=== PATIENT | male | born 1955 | race Caucasian/White ===

== ENCOUNTER → 2017-01-22 | Day surgery (SDC) | payer OTHER ==
[~2017-01-22] VITALS: Ht 188 cm; Wt 93.0 kg
[~2017-01-22] MED LIST: MAGNESIUM500 M2 PO; TERAZOSIN HCL2 M1 PO
--- NOTE | 2017-01-23 07:10 | Operative Report ---
Operative/Inv Procedure Report Surgery Date: 01/22/17 Name of Procedure: LASER TURP; CYSTOSCOPY Pre-Operative Diagnosis: BPH WITH RETENTION Post-Operative Diagnosis: SAME Estimated Blood Loss: less than 50ml Surgeon/Retail Analytics Manager: TEENA GAMBINO MD Anesthesia: laryngeal mask airway Drains: 20FR HERCULES Specimens: PROSTATE MIDDLE LOBE CHIP Complications: NONE Operative/Procedure Note Note: The patient was taken to the operating room and placed on the OR table in supine position. Timeout was performed, with the patient awake, in order to confirm the patient's correct identity, procedure, laterality, antibiotics, and other pertinent mary-operative information. After adequate anesthesia and antibiotics , the indwelling hercules was removed. The patient was then draped and prepped in the usual surgical fashion. He was positioned comfortably and securely in Yellow-Fin stirrups. A lubricated 22 Somali cystoscope sheath with 30 angle lens was inserted under direct visualization. On entering the prostatic urethra, the prostate gland was noted to have significantly obstructing bilateral prostate lobes, and a large sized middle lobe. The veru-montanum was noted to be normal. Upon entering the bladder, through a narrowed bladder neck, the bladder was noted to be trabeculated with multiple cellules. There was no evidence of bladder tumor, nor stones. Both ureteral orifices were noted to be in their orthotopic position with clear reflux bilaterally. The bladder was drained, via the cystoscope, and the cystoscope was removed. A 26 Somali laser resectoscope sheath was then inserted into the penis, with a 30 angle lens, under direct visualization. Maintaining the cystoscope at the level of the veru-montanum, the diode laser fiber was then inserted through the scope and visualized directly in front of the laser resectoscope sheath, in proper orientation. Photo-vaporization of the middle lobe was performed by wedging techcnique with the diode laser. Once the chip of the obstructing middle lobe was resected, that chip was then extracted from the bladder using an alligator grasper. The resectoscope was then reinserted into the penis at the level of the vera montanum. Photo vaporization Left lobe was performed in order to open a wide prostatic urethral channel on the left side. The resection proceeded from the 2-6 o'clock position, obliterating the glandular tissue, to form an open channel. Laser TURP was performed in a sweeping manner in order to get good vaporization of the prostate lobe, and good hemostasis. The resection of the left apical lobe was haulted at the level of the vera montanum, so as to preserve the external sphincter. Once the left lobe was resected in a satisfactory manner, the right lobe of the prostate was then photo vaporized in the same manner from the 10:00 to the 6 o'clock position. Once again the resection of the right lobe was haulted at the level of the veru-montanum. The middle lobe was then photo vaporized, with the diode laser, in order to further open the prostatic channel adequately. Once hemostasis and an open channel was confirmed, the resectoscope was then reinserted into the bladder. The bladder was again thoroughly and systematically surveyed in order to confirm no evidence of injury to the bladder or orifices. The bladder was copiously irrigated in order to us to ensure no foreign body was in the bladder. The bladder was left full and the resectoscope was then removed under direct visualization again confirming good hemostasis. The patient was noted to have mild spontaneous drainage upon removal of the resectoscope. All sponge, needle, and instrument count were correct at the end of the case. A 20 Somali Hercules catheter was then inserted and drained clear fluid prior to inflating the 10 mL balloon. The Hercules catheter was attached to a drainage bag. The patient tolerated the procedure well and was taken to the recovery room in satisfactory condition, with Rx for antibiotics, and pain-meds. Findings: large middle lobe Discharge Disposition: PACU Additional Comments: f/u in office for voiding trial CC: TEENA GAMBINO MD
== END ==
LOC: STS 01-06 07:00
DX: N40.1 Benign prostatic hyperplasia with lower urinary tract symptoms (principal); R33.8 Other retention of urine; N32.89 Other specified disorders of bladder; E78.2 Mixed hyperlipidemia; I10 Essential (primary) hypertension; I49.3 Ventricular premature depolarization
CPT/HCPCS: J0131; J2250; J2405

== ENCOUNTER 2018-01-05 02:03 | Inpatient (IN) | payer OTHER ==
[~2018-01-05] VITALS: Ht 188 cm; Wt 95.3 kg
[~2018-01-05 02:03] MED LIST changes: +BENADRYL25 MG PO; +FLOMAX0.4 M1 PO
--- NOTE | 2018-01-05 11:00 | PN- Urology ---
Surgical Brief Attending Note Brief Attending Note: PT POST TURP WITH GROSS HEMATURIA-REQUIRES CBI WITH NS AND WILL THEREFORE NEED TO STAY IN HOSPITAL AT LEAST OVERNIGHT.
[2018-01-05 12:15] VITALS: BP 130/80
[2018-01-05 14:54] VITALS: BP 120/66
[2018-01-05 21:52] VITALS: BP 138/80
[2018-01-06] MEDS ORDERED: DOCUSATE SODIU100 M3 PO (07:11)
[2018-01-06] MEDS ORDERED: PERCOCET 5-3251 EACH PO (07:11)
[2018-01-06 07:39] VITALS: BP 136/76
[2018-01-06 07:50] LABS: ABSOLUTE BASOPHIL COUNT 0 /CUMM (0.0-0.2); ABSOLUTE EOSINOPHIL COUNT 0 /CUMM (0.0-0.7); ABSOLUTE LYMPH COUNT 1.3 /CUMM (1.2-3.4); ABSOLUTE MONOCYTE COUNT 0.6 /CUMM (0.10-0.60); BASOPHIL % 0.2 % (0.0-2.0); EOSINOPHIL % 0.4 % (0-5); GRANULOCYTE % 82.5 % (42.2-75.2); HEMATOCRIT 48.1 % (42-52); MEAN CORPUSCULAR HGB 29.4 PG (27.0-31.0); MEAN CORPUSCULAR HGB CONC 33.5 G/DL (33.0-37.0); MEAN CORPUSCULAR VOLUME 87.6 FL (80.0-94.0); MEAN PLATELET VOLUME 6.7 FL (7.4-10.4); PLATELET COUNT 258 /CUMM (130-400); RBC DISTRIBUTION WIDTH 13.9 % (11.5-14.5); WHITE BLOOD CELL COUNT 10.9 /CUMM (4.8-10.8)
--- NOTE | 2018-01-06 08:26 | Operative Report ---
Operative/Inv Procedure Report Surgery Date: 01/05/18 Name of Procedure: turp: standard bipolar Pre-Operative Diagnosis: bph-retention Post-Operative Diagnosis: same Estimated Blood Loss: less than 50ml Surgeon/Tight Barrel Inspector: Ryan Glynn MD Anesthesia: laryngeal mask airway Drains: 22fr 3-way on ns cbi Specimens: prostate chips Complications: none Operative/Procedure Note Note: The patient was taken to the operating room and placed on the OR table in supine position. Timeout was performed, with the pt. awake, to correctly identify the patient, anesthesia, procedure, and IV antibiotics, and other pertinent perioperative information. After adequate anesthesia and antibiotics, the patient was then placed in lithotomy stirrups using yellowfin stirrups. The patient was then draped and prepped in the usual surgical fashion. A 26 Croatian standard resectoscope sheath with a 30 angle lens and the 24 Croatian loop was inserted into the urethra, and then advanced into the bladder without difficulty. A FEW small clots, and bladder stones, were noted in the bladder, and were Ellix evacuated out. With a clearer vision, the prostate was noted to have an irregular and ratty surface with severely coapting lobes. Additionally, the prostate was hypervascular consistent with regrowth. Upon entering the bladder, it was thoroughly and systematically surveyed revealing no evidence of tumor, both orifices were difficult to find due to the severe trabeculation, in their orthotopic position with clear yellow reflux. The resectoscope was then retracted to the level of the jackson montanum. Under direct visualization the 24 Croatian loop was then extended beyond the scope. Under direct visualization, and using the cutting current, the left lobe of the prostate was resected from the 2 :00 to the 6 o'clock position to the level of the fibromuscular capsule. Using coag current, spot cauterization was performed in order to achieve good hemostasis of the prostate. The loop was then extended once again using cutting current to resect the right side of the prostate from the 10:00 to the 6 o'clock position to the level of the fibromuscular capsule. Spot cauterization using coag current was then performed in order to achieve good hemostasis. Maintaining the position of the resectoscope at the level of the vera montanum the apical tissue was resected as well on both sides. The external sphincter was preserved. The bladder was then re-entered via the resectoscope, and the prostate chips were irrigated out using tumey evacuation. Once all the prostate chips were removed, the bladder was re-evaluating and noted to have no untoward injury. Additionally, the prostate channel was noted to have good hemostasis, with a wide open channel. The resectoscope was removed with the bladder full. A 22 Croatian couvalier three-way Hercules catheter was inserted without difficulty draining clear fluid. The bladder was again copiously irrigated via the hercules to ensure patency/ The 30 mL balloon was then filled, and continuous bladder irrigation with normal saline was initiated. Clear and easy drainage of NS from the main port was confirmed with CBI. All sponge needle and instrument count were correct at the end of the case. The patient tolerated the procedure well and was then taken to the recovery room in satisfactory condition. Discharge Disposition: PACU CC: Ryan Glynn MD
[2018-01-06 14:19] VITALS: BP 140/70
[2018-01-06 21:56] VITALS: BP 132/64
== END 2018-01-07 12:30 | DRG 667 ==
LOC: STS 02:03 → PACUH 09:53 → ENRESERV 10:00 → ENTRNSPT 11:35 → EDTRNSPTSTS 11:44 → EDTRNSPT 11:44 → 2NB 12:01 → CMPTRNSPT 12:15 → ENPENDDIS 01-06 07:16 → 2NB 01-06 09:49 → EDPENDDISDT 01-07 07:16 → 2NB 01-07 12:30
PROVIDERS: Urology
PROC: 0VT08ZZ Resection of Prostate, Via Natural or Artificial Opening Endoscopic (ICD-10-PCS; principal; 2018-01-05)
PROC: 3E1K78Z Irrigation of Genitourinary Tract using Irrigating Substance, Via Natural or Artificial Opening (ICD-10-PCS; 2018-01-05)
DX: R31.0 Gross hematuria (principal); N40.1 Benign prostatic hyperplasia with lower urinary tract symptoms; R33.8 Other retention of urine; K21.9 Gastro-esophageal reflux disease without esophagitis; H81.10 Benign paroxysmal vertigo, unspecified ear; Z88.1 Allergy status to other antibiotic agents
CPT/HCPCS: 2NBSP; 36592; 93005; 93010; J0131; J0696; J2405; J7042